=== PATIENT | female | born 1980 | race Asian ===

== ENCOUNTER → 2024-03-26 16:28 | Outpatient (REF) | payer OTHER, SELFPAY | LOC: RAD 16:28 | PROVIDERS: ATTENDING PHYSICIAN Family Medicine | DX: G89.29 Other chronic pain (principal); M54.41 Lumbago with sciatica, right side | CPT/HCPCS: 72110 ==

== ENCOUNTER 2024-07-19 14:15 | Outpatient (RCR) | payer OTHER, SELFPAY | END 2024-07-19 23:59 | disposition home or self-care (01) | LOC: RPT 14:15 | PROVIDERS: ATTENDING PHYSICIAN Student in an Organized Health Care Education/Training Program | DX: M54.16 Radiculopathy, lumbar region (principal); M54.51 Vertebrogenic low back pain; M51.26 Other intervertebral disc displacement, lumbar region; Z73.6 Limitation of activities due to disability; M79.651 Pain in right thigh; M25.561 Pain in right knee | CPT/HCPCS: 97110; 97112; 97140; 97161 ==

== ENCOUNTER 2024-08-14 15:10 | Outpatient (RCR) | payer OTHER, SELFPAY | END 2024-08-14 23:59 | disposition home or self-care (01) | LOC: RPT 15:10 | PROVIDERS: ATTENDING PHYSICIAN Student in an Organized Health Care Education/Training Program | DX: M54.16 Radiculopathy, lumbar region (principal); M54.51 Vertebrogenic low back pain; M51.26 Other intervertebral disc displacement, lumbar region; Z73.6 Limitation of activities due to disability; M79.651 Pain in right thigh; M25.561 Pain in right knee | CPT/HCPCS: 97010; 97110; 97112; 97140 ==

== ENCOUNTER 2024-09-13 14:09 | Outpatient (RCR) | payer OTHER, SELFPAY | END 2024-09-13 23:59 | disposition home or self-care (01) | LOC: RPT 14:09 | PROVIDERS: ATTENDING PHYSICIAN Student in an Organized Health Care Education/Training Program | DX: M54.16 Radiculopathy, lumbar region (principal); M54.51 Vertebrogenic low back pain; M51.26 Other intervertebral disc displacement, lumbar region; Z73.6 Limitation of activities due to disability; M54.2 Cervicalgia; M79.651 Pain in right thigh; M25.561 Pain in right knee | CPT/HCPCS: 97010; 97110; 97112; 97140 ==

== ENCOUNTER 2024-10-15 14:25 | Outpatient (RCR) | payer OTHER, SELFPAY | END 2024-10-15 23:59 | disposition home or self-care (01) | LOC: RPT 14:25 | PROVIDERS: ATTENDING PHYSICIAN Student in an Organized Health Care Education/Training Program | DX: M54.16 Radiculopathy, lumbar region (principal); M54.51 Vertebrogenic low back pain; M51.26 Other intervertebral disc displacement, lumbar region; Z73.6 Limitation of activities due to disability; M79.651 Pain in right thigh; M25.561 Pain in right knee; M54.2 Cervicalgia | CPT/HCPCS: 97010; 97110; 97112; 97140 ==

== ENCOUNTER 2024-10-29 14:15 | Outpatient (RCR) | payer OTHER, SELFPAY | END 2024-10-29 23:59 | disposition home or self-care (01) | LOC: RPT 14:15 | PROVIDERS: ATTENDING PHYSICIAN General Practice | DX: N39.3 Stress incontinence (female) (male) (principal); M51.362 Other intervertebral disc degeneration, lumbar region with discogenic back pain and lower extremity pain; M62.89 Other specified disorders of muscle; Z73.6 Limitation of activities due to disability | CPT/HCPCS: 97110; 97112; 97140; 97162; 97530 ==

== ENCOUNTER 2024-11-15 15:14 | Outpatient (RCR) | payer OTHER, SELFPAY | END 2024-11-15 23:59 | disposition home or self-care (01) | LOC: RPT 15:14 | PROVIDERS: ATTENDING PHYSICIAN Student in an Organized Health Care Education/Training Program | DX: M54.16 Radiculopathy, lumbar region (principal); M54.51 Vertebrogenic low back pain; M51.26 Other intervertebral disc displacement, lumbar region; Z73.6 Limitation of activities due to disability; M79.651 Pain in right thigh; M25.561 Pain in right knee; M54.2 Cervicalgia | CPT/HCPCS: 97010; 97110; 97112; 97140 ==

== ENCOUNTER 2024-11-19 14:00 | Outpatient (RCR) | payer OTHER, SELFPAY | END 2024-11-19 23:59 | disposition home or self-care (01) | LOC: RPT 14:00 | PROVIDERS: ATTENDING PHYSICIAN Student in an Organized Health Care Education/Training Program | DX: M54.16 Radiculopathy, lumbar region (principal); M54.51 Vertebrogenic low back pain; M51.26 Other intervertebral disc displacement, lumbar region; Z73.6 Limitation of activities due to disability; M79.651 Pain in right thigh; M25.561 Pain in right knee; M54.2 Cervicalgia | CPT/HCPCS: 97010; 97110; 97112 ==

== ENCOUNTER 2024-12-11 15:13 | Outpatient (RCR) | payer OTHER, SELFPAY | END 2024-12-11 23:59 | disposition home or self-care (01) | LOC: RPT 15:13 | PROVIDERS: ATTENDING PHYSICIAN General Practice | DX: N39.3 Stress incontinence (female) (male) (principal); M51.362 Other intervertebral disc degeneration, lumbar region with discogenic back pain and lower extremity pain; M62.89 Other specified disorders of muscle; Z73.6 Limitation of activities due to disability | CPT/HCPCS: 97110; 97112; 97140; 97530 ==

== ENCOUNTER 2025-01-08 15:10 | Outpatient (RCR) | payer OTHER, SELFPAY | END 2025-01-08 23:59 | disposition home or self-care (01) | LOC: RPT 15:10 | PROVIDERS: ATTENDING PHYSICIAN General Practice | DX: N39.3 Stress incontinence (female) (male) (principal); M51.362 Other intervertebral disc degeneration, lumbar region with discogenic back pain and lower extremity pain; M62.89 Other specified disorders of muscle; Z73.6 Limitation of activities due to disability | CPT/HCPCS: 97110; 97112; 97140; 97530 ==

== ENCOUNTER 2025-02-10 16:06 | Outpatient (RCR) | payer OTHER, SELFPAY | END 2025-02-10 23:59 | disposition home or self-care (01) | LOC: RPT 16:06 | PROVIDERS: ATTENDING PHYSICIAN General Practice | DX: N39.3 Stress incontinence (female) (male) (principal); M51.362 Other intervertebral disc degeneration, lumbar region with discogenic back pain and lower extremity pain; M62.89 Other specified disorders of muscle; Z73.6 Limitation of activities due to disability | CPT/HCPCS: 97110; 97112; 97140; 97530 ==

== ENCOUNTER 2025-03-12 15:43 | Outpatient (RCR) | payer OTHER, SELFPAY | END 2025-03-12 23:59 | disposition home or self-care (01) | LOC: RPT 15:43 | PROVIDERS: ATTENDING PHYSICIAN General Practice | DX: N39.3 Stress incontinence (female) (male) (principal); M51.362 Other intervertebral disc degeneration, lumbar region with discogenic back pain and lower extremity pain; M62.89 Other specified disorders of muscle; Z73.6 Limitation of activities due to disability | CPT/HCPCS: 97110; 97140; 97530 ==

== ENCOUNTER 2025-04-09 15:26 | Outpatient (RCR) | payer OTHER, SELFPAY | END 2025-04-09 23:59 | disposition home or self-care (01) | LOC: RPT 15:26 | PROVIDERS: ATTENDING PHYSICIAN General Practice | DX: N39.3 Stress incontinence (female) (male) (principal); M51.362 Other intervertebral disc degeneration, lumbar region with discogenic back pain and lower extremity pain; M62.89 Other specified disorders of muscle; Z73.6 Limitation of activities due to disability | CPT/HCPCS: 97110; 97112; 97140; 97530 ==

== ENCOUNTER 2025-05-09 09:36 | Outpatient (RCR) | payer OTHER, SELFPAY | END 2025-05-09 23:59 | disposition home or self-care (01) | LOC: RPT 09:36 | PROVIDERS: ATTENDING PHYSICIAN General Practice | DX: N39.3 Stress incontinence (female) (male) (principal); M51.362 Other intervertebral disc degeneration, lumbar region with discogenic back pain and lower extremity pain; M62.89 Other specified disorders of muscle; Z73.6 Limitation of activities due to disability | CPT/HCPCS: 97110; 97112; 97140; 97530 ==

== ENCOUNTER 2025-06-04 15:35 | Outpatient (RCR) | payer OTHER, SELFPAY | END 2025-06-04 23:59 | disposition home or self-care (01) | LOC: RPT 15:35 | PROVIDERS: ATTENDING PHYSICIAN General Practice | DX: N39.3 Stress incontinence (female) (male) (principal); M51.362 Other intervertebral disc degeneration, lumbar region with discogenic back pain and lower extremity pain; M62.89 Other specified disorders of muscle; Z73.6 Limitation of activities due to disability | CPT/HCPCS: 97110; 97112; 97140; 97530 ==